=== PATIENT | female | born 1950 ===

== ENCOUNTER 2023-08-21 09:38 | Outpatient (CLI) | payer MEDICARE, SELFPAY ==
--- NOTE | ~2023-08-21 | MR_ITS ---
EXAMINATION: MR hip RT wo con DATE: 08/21/2023 10:34 INDICATION: Right hip pain. TECHNIQUE: Magnetic resonance imaging (MRI) of the right hip was performed without intravenous contra st. COMPARISON: None FINDINGS: Bones/cartilage: Bone alignment is normal. No fracture. There is mild osteoarthritis of the hips. There is moderate colin mbar spondylosis. Labrum: There is a tear of the right acetabular labrum. Fluid: There is no hip joint effusion. There is moderate right trochanteric bursitis and mild left trochante gracie bursitis. Soft tissues: There is mild tendinopathy of the hamstring origins. The iliopsoas tendons are normal. There are part ial tears of right gluteus minimus and gluteus medius tendons and left gluteus minimus tendon. There is mild left gluteus medius tendinopathy. IMPRESSION: 1. Mild osteoarthritis of hips. 2. Partial tears of right gluteus minimus and gluteus medius tendons and left gluteus minimus tendon. 3. Moderate right trochanteric bursitis and mild left trochanteric bursitis. Reviewed, dictated and finalized at location E. IMPRESSION: 1. Mild osteoarthritis of hips. 2. Partial tears of right gluteus minimus and gluteus medius tendons and left g luteus minimus tendon. 3. Moderate right trochanteric bursitis and mild left trochanteric bursitis.
== END 2023-08-21 09:39 ==
PROVIDERS: PCP Student in an Organized Health Care Education/Training Program; Visit Provider Student in an Organized Health Care Education/Training Program
DX: M25.551 Pain in right hip (principal); M16.0 Bilateral primary osteoarthritis of hip; S76.012A Strain of muscle, fascia and tendon of left hip, initial encounter; S76.011A Strain of muscle, fascia and tendon of right hip, initial encounter; M71.552 Other bursitis, not elsewhere classified, left hip; M71.551 Other bursitis, not elsewhere classified, right hip
CPT/HCPCS: 73721